=== PATIENT | female | born 1995 | race Two or more races ===

== ENCOUNTER 2019-08-27 17:40 | Outpatient (CLI) | payer OTHER ==
[2019-08-27] MEDS ORDERED: PRENATAL TABLE1 EACH PO (18:18)
== END 2019-08-27 22:10 | disposition home or self-care (01) ==
LOC: OBS/DEL 17:40
DX: O26.892 Other specified pregnancy related conditions, second trimester (principal); Z04.1 Encounter for examination and observation following transport accident; V49.88XA Car occupant (driver) (passenger) injured in other specified transport accidents, initial encounter; Y93.89 Activity, other specified; Y92.488 Other paved roadways as the place of occurrence of the external cause; Y99.8 Other external cause status

== ENCOUNTER 2019-11-23 11:45 | Inpatient (IN) | payer OTHER ==
[~2019-11-23] VITALS: Ht 167.6 cm; Wt 99.8 kg
[~2019-11-23 11:45] MED LIST: PRENATAL TABLE1 EACH PO
== END 2019-12-22 11:37 | disposition home or self-care (01) | DRG 807 ==
LOC: LDR 12-20 06:09 → OB/GYN 12-20 06:09
PROVIDERS: ADMIT Specialist; ATTEND Specialist
PROC: 10E0XZZ Delivery of Products of Conception, External Approach (ICD-10-PCS; principal; 2019-12-20)
PROC: 4A0HXFZ Measurement of Products of Conception, Cardiac Rhythm, External Approach (ICD-10-PCS; 2019-12-20)
DX: O80 Encounter for full-term uncomplicated delivery (principal); Z37.0 Single live birth; Z3A.40 40 weeks gestation of pregnancy